=== PATIENT | male | born 1945 | race Native Hawaiian/Other Pacific Islander ===

== ENCOUNTER 2018-06-13 11:56 | Outpatient (CLI) | payer OTHER | END 2018-06-13 21:37 | disposition home or self-care (01) | LOC: LABW 11:56 | DX: Z11.3 Encounter for screening for infections with a predominantly sexual mode of transmission (principal); A63.0 Anogenital (venereal) warts | CPT/HCPCS: 36415; 80074; 86592; 87535; G0432 ==